=== PATIENT | female | born 1980 | race Two or more races ===

== ENCOUNTER 2023-09-01 08:41 | Emergency (ER) | payer OTHER ==
[~2023-09-01] VITALS: Ht 170.2 cm; Wt 68.0 kg
[2023-09-01 09:53] LABS: HEMATOCRIT 37.9 % (36.0-45.00); HEMOGLOBIN 13.4 g/dL (12.0-15.00); MEAN CELL VOLUME 90.9 fL (80.00-100.00); MEAN CORPUSCULAR HEMOGLOBIN 32.2 pg (27.00-32.0); MEAN CORPUSCULAR HGB CONC 35.4 g/dl (32.0-36.0); PLATELET COUNT 212 K/uL (150-450); RED BLOOD COUNT 4.17 M/uL (4.00-6.00); RED CELL DISTRIBUTION WIDTH 13.7 % (11.5-14.5)
[2023-09-01] MEDS ORDERED: TUSNEL LIQUID178 ML PO (10:54)
[2023-09-01] MEDS ORDERED: BUTALB-ACETAMI1 EAC2 PO (10:54)
[2023-09-01] MEDS ORDERED: OSEL75CA PO (10:54)
== END 2023-09-01 11:14 | disposition home or self-care (01) ==
LOC: ER 08:42
PROVIDERS: General Practice
DX: G43.809 Other migraine, not intractable, without status migrainosus (principal); J10.1 Influenza due to other identified influenza virus with other respiratory manifestations